=== PATIENT | female | born 1960 | race Caucasian/White ===

== ENCOUNTER 2016-11-27 10:31 | Day surgery (SDC) | payer BC ==
[~2016-11-27 10:31] MED LIST: Lactated Ringers 1,000 ML IV SCH; Lidocaine 1%/Sod Bicarbonate in NS 8.4% 1 ML Syringe PRN; Midazolam 1 MG/ML 2 ML SDV ONE; Sodium Chloride 0.9% 10 ML Syringe FLUSH PRN
[2016-11-27] MEDS ORDERED: Bupivacaine 0.25% 30 ML SDV ONE (11:37)
[2016-11-27] MEDS ORDERED: EPINEPHrine 1 MG/ML 30 ML MDV ONE (11:39)
--- NOTE | 2016-11-27 11:39 | PCM.PREANE ---
Preanesthetic Assessment - Procedure Proposed Procedure: L KVA with debridement and manipulation - Anesthesia/Transfusion/Family Hx Anesthesia History: Prior Anesthesia Without Reaction Family History of Anesthesia Reaction: No Transfusion History: No Prior Transfusion(s) - Review of Systems General: No Symptoms Pulmonary: No Symptoms Cardiovascular: No Symptoms Gastrointestinal: Other (Occasional GERD depending on diet ) Neurological: No Symptoms Other: Reports: None - Physical Assessment NPO Status Date: 11/26/16 NPO Status Time: 21:00 O2 Sat by Pulse Oximetry: 100 Respiratory Rate: 16 Vital Signs: Last Vital Signs Temp 36.7 C 11/27/16 10:35 Pulse 74 11/27/16 10:35 Resp 16 11/27/16 10:35 BP 132/84 11/27/16 10:35 Pulse Ox 100 11/27/16 10:35 Height: 1.63 m Weight: 85.094 kg ASA Class: 2 Mental Status: Alert & Oriented x3 Airway Class: Mallampati = 2 Thyro-Mental Finger Breadths: 3 Mouth Opening Finger Breadths: 3 ROM/Head Extension: Full Lungs: Clear to Auscultation, Normal Respiratory Effort Cardiovascular: Regular Rate, Regular Rhythm - Allergies Allergies/Adverse Reactions: Allergies Allergy/AdvReac Type Severity Reaction Status Date / Time No Known Allergies Allergy Verified 11/27/16 11:20 - Blood Blood Available: No Product(s) Available: None - Anesthesia Plan Pre-Op Medication Ordered: None - Acknowledgements Anesthesia Type Planned: General Anesthesia Pt an Appropriate Candidate for the Planned Anesthesia: Yes Alternatives and Risks of Anesthesia Discussed w Pt/Guardian: Yes Pt/Guardian Understands and Agrees with Anesthesia Plan: Yes PreAnesthesia Questionnaire - Past Health History Medical/Surgical History: Denies Medical/Surgical History HEENT History: Reports: Other (See Below) Other HEENT History: wears glasses for reading Cardiovascular History: Reports: None Respiratory History: Reports: Other (See Below) Other Respiratory History: Moderate to Severe Snoring per patient Gastrointestinal History: Reports: None Genitourinary History: Reports: Urinary Incontinence, UTI, Recurrent, Other ( See Below) Other Genitourinary History: overactive bladder, incontinence, cystocele 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: Dysfunctional Uterine Bleeding, Other OB/BYN History: hysterectomy with bladder repair, tubal ligation, breast reduction Musculoskeletal History: Reports: Osteoarthritis Neurological History: Reports: None, Other (See Below) Other Neuro History: L knee nerve pain Psychiatric History: Reports: Other (See Below) Other Psychiatric History: chronic fatigue Endocrine/Metabolic History: Reports: None Hematologic History: Reports: None Immunologic History: Reports: None Oncologic (Cancer) History: Reports: None Dermatologic History: Reports: Other (See Below) Other Dermatologic History: cold sores, skin lesion, solar lentigo - Past Surgical History HEENT Surgical History: Reports: None Cardiovascular Surgical History: Reports: None Respiratory Surgical History: Reports: None GI Surgical History: Reports: Cholecystectomy Female Surgical History: Reports: Breast Reduction, Hysterectomy, Tubal Ligation Endocrine Surgical History: Reports: None Musculoskeletal Surgical History: Reports: Knee Replacement Other Musculoskeletal Surgeries/Procedures:: previous right knee replacement Oncologic Surgical History: Reports: None - SUBSTANCE USE Smoking Status *Q: Never Smoker Second Hand Smoke Exposure: No Days Per Week of Alcohol Use: 2 Number of Drinks Per Day: 2 Total Drinks Per Week: 4 Recreational Drug Use History: No - HOME MEDS Home Medications: Home Meds Multivitamin [Multivitamins] 1 tab PO DAILY 12/29/14 [History] Aspirin 325 mg PO BID #84 tablet 11/27/16 [Rx] Cyclobenzaprine [Flexeril] 10 mg PO TID PRN #40 tablet 11/27/16 [Rx] Hydrocodone/Acetaminophen [[place] 5-325 Tablet] 1 - 2 each PO Q6H PRN #40 tablet 11/27/16 [Rx] - CURRENT (IN HOUSE) MEDS Current Meds: Current Medications Lactated Ringer's (Ringers, Lactated) 1,000 mls @ 125 mls/hr IV ASDIRECTED RITA Stop: 11/27/16 23:00 Last Admin: 11/27/16 11:05 Dose: 125 mls/hr Lidocaine/Sodium Bicarbonate (Buffered Lidocaine 1% In Ns 8.4%) 0.25 ml .XX ONETIME PRN PRN Reason: Prior to IV Start Stop: 11/27/16 18:00 Last Admin: 11/27/16 11:04 Dose: 0.25 ml Sodium Chloride (Saline Flush) 10 ml FLUSH ASDIRECTED PRN PRN Reason: Keep Vein Open Stop: 11/27/16 18:00 Discontinued Medications Midazolam HCl (Versed 1 Mg/Ml) Confirm Administered Dose 2 mg .ROUTE .STK-MED ONE Stop: 11/27/16 09:16
[2016-11-27] MEDS ORDERED: fentaNYL 250 MCG/5 ML SDV ONE (11:48)
[2016-11-27] MEDS ORDERED: Propofol 200 MG/20 ML SDV ONE (11:48)
[2016-11-27] MEDS ORDERED: Ondansetron 4 MG/2 ML SDV ONE (11:48)
[2016-11-27] MEDS ORDERED: ceFAZolin 1 GM Vial ONE (11:49)
[2016-11-27] MEDS ORDERED: Lidocaine 1% 4 ML ONE (11:49)
[2016-11-27] MEDS ORDERED: HYDROmorphone 1 MG/ML Syringe ONE (12:56)
[2016-11-27] MEDS ORDERED: Ketorolac 30 MG/ML SDV ONE (12:58)
[2016-11-27] MEDS ORDERED: fentaNYL 100 MCG/2 ML SDV IVPUSH PRN (13:22)
[2016-11-27] MEDS ORDERED: HYDROmorphone 0.5 MG/0.5 ML Syringe IVPUSH PRN (13:22)
--- NOTE | 2016-11-27 13:23 | PCM.POSTAN ---
POST ANESTHESIA ASSESSMENT - MENTAL STATUS Mental Status: Alert, Oriented - VITAL SIGNS Pulse Rate: 98 SaO2: 97 Resp Rate: 13 Blood Pressure: 128/78 Temperature: 36.8 C - RESPIRATORY Respiratory Status: Respiratory Rate WNL, Airway Patent, O2 Saturation Stable, Supplemental Oxygen - CARDIOVASCULAR CV Status: Pulse Rate WNL, Blood Pressure Stable - GASTROINTESTINAL GI Status: No Symptoms - PAIN Pain Score: 0 - POST OP HYDRATION Hydration Status: Adequate & Stable - OBSERVATIONS Free Text/Narrative:: no anesthesia complications noted
[2016-11-27 15:23] VITALS: BP 154/92
--- NOTE | 2016-12-03 13:55 | PCM.OPNOTE ---
- General Post-Op/Procedure Note Date of Surgery/Procedure: 11/27/16 Operative Procedure(s): left knee video arthroscopy with partial synovectomy Pre Op Diagnosis: left painful total knee arthroplasty Post-Op Diagnosis: Same Anesthesia Technique: General LMA, Local Primary Surgeon: Palomo Barreto Anesthesia Provider: Ethan Clemens Ground Crew Linesman: Roxie Merritt EBDriss in mLs: 5 Complications: None Condition: Good
--- NOTE | 2016-12-03 15:12 | OR ---
DATE OF OPERATION: 11/27/2016 SURGEON: Palomo Barreto MD OPERATION PERFORMED: Left knee video arthroscopy with partial synovectomy. PREOPERATIVE DIAGNOSIS: Left painful total knee arthroplasty. POSTOPERATIVE DIAGNOSIS: Left painful total knee arthroplasty. ANESTHESIA TECHNIQUE: General LMA with local. ANESTHESIA PROVIDER: Ethan Clemens CRNA METAL BALER: Roxie Merritt PA-C ESTIMATED BLOOD LOSS: Less than 5 mL. COMPLICATIONS: None. CONDITION: Stable. DESCRIPTION OF PROCEDURE: The patient was identified in the preop holding area. Proper site was marked and identified by the surgeon. The patient was taken back to the operative theater where after adequate anesthesia, the patient's right lower extremity was placed in a well leg sauceda. The left lower extremity was placed in a C-clamp sauceda, and a nonsterile tourniquet was applied. The left lower extremity was then sterilely prepped and draped in the usual sterile fashion. OR time-out was performed. The patient received 2 g IV Ancef. The left lower extremity was then exsanguinated. Tourniquet was insufflated to 250 mmHg. Standard anterolateral portal incision was made and the scope trocar was introduced. There was noted to be no significant effusion. On examination, there were no signs of infection or arthrofibrosis. There was noted to be some overgrowth of the patella as well as some synovitis as well as synovium inside the lateral joint line. At this time, an anteromedial portal was created and a 4-0 full radius resector was then used for resection of the synovium in both the lateral gutters as well as around the patella until it was back to a stable rim. Once this did happen, excess saline was drained from the knee and 3-0 nylon simple suture was used for closure of the skin. The patient was placed in a sterile soft dressing and sent to PACU in stable condition. ANESTHESIA: MMODAL /[id number]
== END 2016-11-27 14:35 | disposition home or self-care (01) ==
LOC: JD.SDS 10:31
PROVIDERS: ATTEND Orthopaedic Surgery
DX: T84.84XA Pain due to internal orthopedic prosthetic devices, implants and grafts, initial encounter (principal); Z90.710 Acquired absence of both cervix and uterus; Z98.890 Other specified postprocedural states; Z96.659 Presence of unspecified artificial knee joint; Z98.51 Tubal ligation status; Z72.0 Tobacco use
CPT/HCPCS: 29876; J0171; J0690; J1170; J1885; J2250; J2405; J3010; J3490; J7120; 01400; J2704

== ENCOUNTER 2019-07-16 17:05 | Emergency (ER) | payer BC ==
[2019-07-16 17:25] VITALS: BP 144/98; PULSE 78
[2019-07-16] MEDS ORDERED: Lidocaine 1% 10 ML MDV INJECT ONE (17:29)
--- NOTE | 2019-07-16 17:34 | EDM.PDOC ---
ED HPI GENERAL MEDICAL PROBLEM - General Chief Complaint: Laceration Stated Complaint: R INDEX FINGER LAC Time Seen by Provider: 07/16/19 17:09 Source of Information: Reports: Patient, RN Notes Reviewed - History of Present Illness INITIAL COMMENTS - FREE TEXT/NARRATIVE: 58 yr old female suffered lac injury to R index finger as short time ago with a kitchen knife. No other injury. - Related Data Allergies Allergy/AdvReac Type Severity Reaction Status Date / Time No Known Allergies Allergy Verified 07/16/19 17:25 Home Meds: Home Meds Multivitamin [Multivitamins] 1 tab PO DAILY 12/29/14 [History] Aspirin 325 mg PO BID #84 tablet 11/27/16 [Rx] Past Medical History - Past Health History Medical/Surgical History: Denies Medical/Surgical History HEENT History: Reports: Other (See Below) Other HEENT History: wears glasses for reading Cardiovascular History: Reports: None Respiratory History: Reports: Other (See Below) Other Respiratory History: Moderate to Severe Snoring per patient Gastrointestinal History: Reports: None Genitourinary History: Reports: Urinary Incontinence, UTI, Recurrent, Other ( See Below) Other Genitourinary History: after previous surgery. 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: Reports: Dysfunctional Uterine Bleeding, Other REHAB THERAPY MANAGER History: hysterectomy with bladder repair, tubal ligation, breast reduction Musculoskeletal History: Reports: Osteoarthritis Neurological History: Reports: Other (See Below) Other Neuro History: L knee nerve pain Psychiatric History: Reports: Other (See Below) Other Psychiatric History: chronic fatigue Endocrine/Metabolic History: Reports: None Hematologic History: Reports: None Immunologic History: Reports: None Oncologic (Cancer) History: Reports: None Dermatologic History: Reports: Other (See Below) Other Dermatologic History: cold sores, skin lesion, solar lentigo - Past Surgical History HEENT Surgical History: Reports: None Cardiovascular Surgical History: Reports: None Respiratory Surgical History: Reports: None GI Surgical History: Reports: Cholecystectomy Female Surgical History: Reports: Hysterectomy, Tubal Ligation Other Female Surgeries/Procedures: breast reduction Endocrine Surgical History: Reports: None Musculoskeletal Surgical History: Reports: Knee Replacement Other Musculoskeletal Surgeries/Procedures:: previous right knee replacement Oncologic Surgical History: Reports: None Social & Family History - Family History Family Medical History: Noncontributory - Tobacco Use Smoking Status *Q: Never Smoker - Caffeine Use Caffeine Use: Reports: Soda - Recreational Drug Use Recreational Drug Use: No ED ROS GENERAL - Review of Systems Review Of Systems: See Below Constitutional: Reports: No Symptoms Respiratory: Reports: No Symptoms Cardiovascular: Reports: No Symptoms GI/Abdominal: Reports: No Symptoms Musculoskeletal: Reports: Other (lac injury R distal index finger) Neurological: Denies: Numbness, Tingling ED EXAM, SKIN/RASH Exam: See Below General Appearance: Alert, No Apparent Distress Head: Atraumatic Respiratory/Chest: No Respiratory Distress Extremities: Other (2 cm oblique lac injury distal R index finger, volar aspect , shallow but gaping) ED SKIN PROCEDURES - Laceration/Wound Repair Right Distal Digit - 2nd (Index) Appearance: Linear Local Anesthesia - Lidocaine (Xylocaine): 1% Plain Skin Prep: Saline Lac/Wound length In cm: 2 Suture Size: 3-0 Suture Type: Nylon Course - Vital Signs Last Recorded V/S: Last Vital Signs Temp 97.4 F 07/16/19 17:18 Pulse 78 07/16/19 17:18 Resp 18 07/16/19 17:18 BP 144/98 H 07/16/19 17:18 Pulse Ox 97 07/16/19 17:18 - Orders/Labs/Meds Meds: Medications Discontinued Medications Generic Name Dose Route Start Last Admin Trade Name Hallie PRN Reason Stop Dose Admin Lidocaine HCl 10 ml 07/16/19 17:29 07/16/19 17:36 Xylocaine 1% INJECT 07/16/19 17:30 10 ml ONETIME ONE Administration - Re-Assessments/Exams Free Text/Narrative Re-Assessment/Exam: 07/16/19 17:33 unsure of last tetanus but this is also a wound not a risk for tetatnus so unless she requests will not plan to give DPT at this time. Departure - Departure Time of Disposition: 18:02 Disposition: Home, Self-Care 01 Condition: Fair Clinical Impression: Laceration of finger Qualifiers: Encounter type: initial encounter Finger: index finger Damage to nail status: without damage Foreign body presence: without foreign body Laterality: right Qualified Code(s): S61.210A - Laceration without foreign body of right index finger without damage to nail, initial encounter - Discharge Information Referrals: PCP,None [Primary Care Provider] - Forms: ED Department Discharge Additional Instructions: laceration care instr. Stitches out in about 10 days. Sutures can be removed at the [facility], call for appt. Have rechecked any sign of infection. Sepsis Event Note - Evaluation Sepsis Screening Result: No Definite Risk - Focused Exam Vital Signs: Vital Signs Temp Pulse Resp BP Pulse Ox 07/16/19 17:18 97.4 F 78 18 144/98 H 97 Date Exam was Performed: 07/16/19 Time Exam was Performed: 18:04
== END 2019-07-16 18:10 | disposition home or self-care (01) ==
LOC: JD.ED 17:05
DX: S61.210A Laceration without foreign body of right index finger without damage to nail, initial encounter (principal); Z79.82 Long term (current) use of aspirin; W26.0XXA Contact with knife, initial encounter
CPT/HCPCS: 12001; 99282; J2001

== ENCOUNTER 2020-05-15 08:38 | Day surgery (SDC) | payer BC ==
[~2020-05-15 08:38] MED LIST changes: +Lidocaine 1%/Sod Bicarbonate in NS 8.4% 1 ML Syringe IDERM PRN; -Lidocaine 1%/Sod Bicarbonate in NS 8.4% 1 ML Syringe PRN; -Midazolam 1 MG/ML 2 ML SDV ONE
--- NOTE | 2020-05-15 09:04 | PCM.PREANE ---
Preanesthetic Assessment - Procedure Proposed Procedure: diag egd screening colonoscopy - Anesthesia/Transfusion/Family Hx Anesthesia History: Prior Anesthesia Without Reaction Family History of Anesthesia Reaction: No Transfusion History: No Prior Transfusion(s) - Review of Systems General: No Symptoms Pulmonary: No Symptoms Cardiovascular: No Symptoms Gastrointestinal: No Symptoms Neurological: No Symptoms Other: Reports: None - Physical Assessment NPO Status Date: 05/15/20 NPO Status Time: 04:00 (finished prep) Vital Signs: 133/82 84 100% 18 98.1 Height: 5 ft 4 in Weight: 84 kg ASA Class: 2 Mental Status: Alert & Oriented x3 Airway Class: Mallampati = 1 Dentition: Reports: Normal Dentition Thyro-Mental Finger Breadths: 3 Mouth Opening Finger Breadths: 3 ROM/Head Extension: Full Lungs: Clear to Auscultation, Normal Respiratory Effort Cardiovascular: Regular Rate, Regular Rhythm - Allergies Allergies/Adverse Reactions: Allergies Allergy/AdvReac Type Severity Reaction Status Date / Time No Known Allergies Allergy Verified 05/14/20 12:57 - Blood Blood Available: No - Acknowledgements Anesthesia Type Planned: MAC Pt an Appropriate Candidate for the Planned Anesthesia: Yes Alternatives and Risks of Anesthesia Discussed w Pt/Guardian: Yes Pt/Guardian Understands and Agrees with Anesthesia Plan: Yes PreAnesthesia Questionnaire - Past Health History Medical/Surgical History: Denies Medical/Surgical History HEENT History: Reports: Other (See Below) Other HEENT History: wears glasses for reading Cardiovascular History: Reports: None Respiratory History: Reports: Other (See Below) Other Respiratory History: Moderate to Severe Snoring per patient Gastrointestinal History: Reports: GERD Genitourinary History: Reports: Urinary Incontinence, UTI, Recurrent, Other (See Below) Other Genitourinary History: OAB, incontinence, cystocele 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: Dysfunctional Uterine Bleeding, Other OB/BYN History: hysterectomy with bladder repair, tubal ligation, breast reduction Musculoskeletal History: Reports: Osteoarthritis Neurological History: Reports: Other (See Below) Other Neuro History: L knee nerve pain Psychiatric History: Reports: Other (See Below) Other Psychiatric History: chronic fatigue Endocrine/Metabolic History: Reports: Obesity/BMI 30+ Hematologic History: Reports: None Immunologic History: Reports: None Oncologic (Cancer) History: Reports: None Dermatologic History: Reports: Other (See Below) Other Dermatologic History: cold sores, skin lesion, solar lentigo - Infectious Disease History Infectious Disease History: Reports: None - Past Surgical History HEENT Surgical History: Reports: None Cardiovascular Surgical History: Reports: None Respiratory Surgical History: Reports: None GI Surgical History: Reports: Cholecystectomy Female Surgical History: Reports: Breast Reduction, Hysterectomy, Tubal Ligation Other Female Surgeries/Procedures: breast reduction Endocrine Surgical History: Reports: None Neurological Surgical History: Reports: None Musculoskeletal Surgical History: Reports: Knee Replacement Other Musculoskeletal Surgeries/Procedures:: previous right knee replacement Oncologic Surgical History: Reports: None Dermatological Surgical History: Reports: None - SUBSTANCE USE Tobacco Use Status *Q: Never Tobacco User Tobacco Use Within Last Twelve Months: No Second Hand Smoke Exposure: No Days Per Week of Alcohol Use: 0 Recreational Drug Use History: No - HOME MEDS Home Medications: Home Meds . [No Known Home Meds] 05/14/20 [History] - CURRENT (IN HOUSE) MEDS Current Meds: Current Medications Lactated Ringer's (Ringers, Lactated) 1,000 mls @ 125 mls/hr IV ASDIRECTED RITA Stop: 05/15/20 23:00 Lidocaine/Sodium Bicarbonate (Lidocaine 1%/Sod Bicarbonate In Ns 8.4% 1 Ml Syringe) 0.25 ml IDERM ONETIME PRN PRN Reason: Prior to IV Start Stop: 05/15/20 18:00 Sodium Chloride (Sodium Chloride 0.9% 10 Ml Syringe) 10 ml FLUSH ASDIRECTED PRN PRN Reason: Keep Vein Open Stop: 05/15/20 18:00
[2020-05-15] MEDS ORDERED: Midazolam 1 MG/ML 2 ML SDV ONE (09:08)
[2020-05-15] MEDS ORDERED: Propofol 200 MG/20 ML SDV ONE ×2 (09:09→10:14)
[2020-05-15] MEDS ORDERED: fentaNYL 100 MCG/2 ML SDV ONE (09:09)
[2020-05-15] MEDS ORDERED: Lidocaine 1% 4 ML ONE (09:09)
--- NOTE | 2020-05-15 10:39 | PCM.PRNOTE ---
- Free Text/Narrative Note: Date: Procedure: diagnostic esophagogastroduodenoscopy, screening colonoscopy Endoscopist: Niko Berry MD Findings: 2.5 cm hiatal hernia with gross severe esophagitis. Good bowel prep with no colonic polyps identified. Detailed Report: The patient was taken to the endoscopy suite and placed in left lateral decubitus position. Timeout was performed and monitored anesthesia care was initiated. A bite-block was placed and the endoscope was inserted into the mouth. The scope was advanced to the duodenum with ease. Duodenal mucosa appeared normal, a sample of duodenal mucosa was obtained with cold forceps near the bulb. Scope was withdrawn into the stomach. The pyloric antrum appeared normal. A biopsy of antral mucosa was obtained with cold forceps. No gastritis or ulcer disease was appreciated. On retroflexion, there appeared to be 2.5 cm sliding hiatal hernia. The scope was withdrawn into the distal esophagus. There was gross inflammatory change of the distal esophagus with erosive changes consistent with reflux esophagitis. Several biopsies of the distal esophageal mucosa were obtained. The remainder of the esophagus appeared normal and vocal cords appeared normal. Air was suctioned from the stomach and the scope was withdrawn. Next, attention was turned to colonoscopy. There were small external hemorrhoidal skin tags noted. Digital rectal exam was unremarkable. The colonoscope was inserted and advanced all the way to the cecum. The appendiceal orifice was visualized. The prep was very good. The scope was slowly withdrawn and mucosal surfaces carefully inspected. No polyps were identified. Very few scattered small diverticula were noted. On retroflexion in the rectum, minor internal hemorrhoidal disease was appreciated. Air was suctioned from the rectum prior to withdrawal of the scope. The patient tolerated the procedure well.
--- NOTE | 2020-05-15 10:46 | PCM48HPAN ---
Post Anesthesia Note - EVALUATION WITHIN 48HRS OF ANESTHETIC Vital Signs in Normal Range: Yes Patient Participated in Evaluation: Yes Respiratory Function Stable: Yes Airway Patent: Yes Cardiovascular Function Stable: Yes Hydration Status Stable: Yes Pain Control Satisfactory: Yes Nausea and Vomiting Control Satisfactory: Yes Mental Status Recovered: Yes Vital Signs: Last Vital Signs Temp 98.1 F 05/15/20 08:45 Pulse 84 05/15/20 08:45 Resp 18 05/15/20 08:45 BP 133/82 05/15/20 08:45 Pulse Ox 100 05/15/20 08:45 1041 118/80 100% 78 15 97.5
[2020-05-15 11:25] VITALS: BP 127/77; PULSE 74
== END 2020-05-15 11:36 | disposition home or self-care (01) ==
LOC: JD.SDS 08:38
PROVIDERS: ATTEND Surgery
DX: Z12.11 Encounter for screening for malignant neoplasm of colon (principal); K57.30 Diverticulosis of large intestine without perforation or abscess without bleeding; K20.90 Esophagitis, unspecified without bleeding; K44.9 Diaphragmatic hernia without obstruction or gangrene; K64.4 Residual hemorrhoidal skin tags; K64.8 Other hemorrhoids; K22.8 Other specified diseases of esophagus; Z79.899 Other long term (current) drug therapy; Z98.890 Other specified postprocedural states
CPT/HCPCS: 43239; 45378; J2250; J2704; J3010; J7120; 00813

== ENCOUNTER 2023-12-05 03:31 | Emergency (ER) | payer BC ==
[2023-12-05] MEDS: Diphtheria,Pertussis(Acell),Tetanus Vaccine 0.5 ML Syringe IM ONE (05:27)
[2023-12-05] MEDS ORDERED: Lidocaine 1% 10 ML MDV INJECT ONE (05:46)
[2023-12-05 08:11] VITALS: BP 144/80; PULSE 88
== END 2023-12-05 08:11 | disposition home or self-care (01) ==
LOC: JD.ED 03:31
DX: R55 Syncope and collapse (principal); S01.01XA Laceration without foreign body of scalp, initial encounter; E66.9 Obesity, unspecified; K21.9 Gastro-esophageal reflux disease without esophagitis; Z23 Encounter for immunization; Z68.31 Body mass index [BMI] 31.0-31.9, adult; Z79.899 Other long term (current) drug therapy; W18.2XXA Fall in (into) shower or empty bathtub, initial encounter; Y92.002 Bathroom of unspecified non-institutional (private) residence as the place of occurrence of the external cause
CPT/HCPCS: 12002; 70450; 70450-26; 90471; 90715; 99284-25